=== PATIENT | male | born 1980 | race Two or more races ===

== ENCOUNTER 2021-08-24 03:51 | Emergency (ER) | payer MEDICAID ==
[~2021-08-24] VITALS: Ht 175.3 cm; Wt 90.7 kg
[2021-08-24 04:10] VITALS: BP 130/84
--- NOTE | 2021-08-24 04:10 | NUR ---
PT BIBSELF FROM HOME C/O LEFT SIDE ABD PAIN RAD TO LOWER BACK STARTED AT 2AM. PT A/OX4. TOLERATING R/A WELL WITH NO SOB. CONNECTED PT TO POX AND MONITOR
[2021-08-24] MEDS ORDERED: MORPHINE SULFATE INJ 4 MG/ML DISP.SYRIN ONE (04:18)
[2021-08-24] MEDS ORDERED: ONDANSETRON HCL/PF 4 MG/2 ML VIAL ONE (04:18)
--- NOTE | 2021-08-24 04:27 | NUR ---
PT SEEN BY LOGAN DE LEÓN
--- NOTE | 2021-08-24 04:28 | NUR ---
URINE SENT TO LAB
[2021-08-24] MEDS ORDERED: IV NS 0.9% 1,000 ML BAG IV ONE (04:30)
[2021-08-24] MEDS ORDERED: MORPHINE SULFATE INJ 2 MG/ML DISP.SYRIN IV ONE (04:30)
[2021-08-24] MEDS ORDERED: ONDANSETRON HCL/PF 4 MG/2 ML VIAL IVP ONE (04:30)
--- NOTE | 2021-08-24 04:38 | NUR ---
RAC #20G S/L; PATENT AND INTACT. BLOOD COLLECTED AND GIVEN TO LAB
--- NOTE | 2021-08-24 04:39 | NUR ---
PT TAKEN TO CT VIA ANITA
[2021-08-24 04:46] LABS: BILIRUBIN,URINE SMALL (NEGATIVE); COLOR,URINE DARK YELLOW (YELLOW); LEUKOCYTE ESTERASE ,URINE NEGATIVE (NEGATIVE); NITRITE, URINE NEGATIVE (NEGATIVE); PROTEIN,URINE >=300 mg/dl (NEGATIVE); UGLUCOSE NEGATIVE (NEGATIVE); UROBILINOGEN,URINE 0.2 EU/dL (0.2)
[2021-08-24 04:49] LABS: BASOPHILS # (AUTO) 0.1 K/uL (0.0-0.2); BASOPHILS % (AUTO) 0.5 % (0.0-2.0); EOSINOPHILS % (AUTO) 1.9 % (0.0-6.0); HEMATOCRIT 43 % (39-51); LYMPHOCYTES # (AUTO) 3.6 K/uL (0.8-4.8); LYMPHOCYTES % (AUTO) 34.9 % (20.0-44.0); MEAN CORPUSCULAR HGB CONC 35 g/dl (31.0-36.0); MEAN CORPUSCULAR VOLUME 81 fL (80-96); MONOCYTES # (AUTO) 0.6 K/uL (0.1-1.30); MONOCYTES % (AUTO) 6.1 % (2.0-12.0); NEUTROPHILS # (AUTO) 5.8 K/uL (1.8-8.9); NEUTROPHILS % (AUTO) 56.6 % (43.0-81.0); PLATELET COUNT (AUTO) 301 K/uL (150-450); RED BLOOD CELL COUNT(AUTO) 5.29 MIL/uL (4.5-6.0); WHITE BLOOD COUNT (AUTO) 10.2 K/uL (4.3-11.0)
[2021-08-24 05:06] LABS: RBC,URINE TOO NUMEROUS TO COUN /HPF (0-2)
[2021-08-24 05:07] LABS: BACTERIA,URINE Many /HPF (None Seen); SQUAMOUS EPITHELIAL CELL,UR Few /HPF (None Seen)
[2021-08-24 05:29] LABS: ALBUMIN 3.8 g/dL (3.4-5.0); BILIRUBIN,TOTAL 0.3 mg/dL (0.2-1.0); CALCIUM, SERUM 8.9 mg/dL (8.5-10.1); CREATININE 1.2 mg/dL (0.6-1.3); POTASSIUM 3.8 mmol/L (3.5-5.1); TOTAL PROTEIN, SERUM 7.9 g/dL (6.4-8.2)
--- NOTE | 2021-08-24 06:07 | NUR ---
Patient discharged to home in stable condition. Written and verbal after care instructions given. Patient verbalizes understanding of instruction.
== END 2021-08-24 06:10 | disposition home or self-care (01) ==
LOC: ER 04:01
DX: N13.2 Hydronephrosis with renal and ureteral calculous obstruction (principal); R10.32 Left lower quadrant pain; Z60.2 Problems related to living alone
CPT/HCPCS: 36415; 74176; 80048; 80076; 81001; 83690; 85025; 85730; 87086; 96361; 96374; 96375; 99284; J2270; J2405; J7030

== ENCOUNTER 2023-06-04 08:53 | Emergency (ER) | payer MEDICAID ==
[~2023-06-04] VITALS: Ht 175.3 cm; Wt 91.2 kg
[2023-06-04 09:01] VITALS: BP 134/72; TEMP 98.4
[2023-06-04] MEDS ORDERED: METH4TAB3 PO (10:22)
[2023-06-04] MEDS ORDERED: LIDO30AD10 TP (10:22)
[2023-06-04] MEDS ORDERED: IBUP-1955 PO (10:22)
[2023-06-04] MEDS ORDERED: KETOROLAC TROMETHAMINE 15 MG/ML VIAL ONE (10:22)
[2023-06-04] MEDS ORDERED: CYCL5TAB PO (10:22)
[2023-06-04] MEDS ORDERED: KETOROLAC TROMETHAMINE INJ 30 MG/ML VIAL IM ONE (10:30)
[2023-06-04 10:37] VITALS: O2SAT 100
== END 2023-06-04 10:38 | disposition home or self-care (01) ==
LOC: ER 09:06
DX: S39.012A Strain of muscle, fascia and tendon of lower back, initial encounter (principal); M54.42 Lumbago with sciatica, left side; Z60.2 Problems related to living alone; X58.XXXA Exposure to other specified factors, initial encounter; Y93.89 Activity, other specified; Y92.89 Other specified places as the place of occurrence of the external cause; Y99.8 Other external cause status
CPT/HCPCS: 99283; 96372; J1885